=== PATIENT | female | born 1965 | race Hispanic/Latino ===

== ENCOUNTER 2018-12-14 15:37 | Outpatient (CLI) | payer OTHER ==
--- NOTE | 2018-12-14 17:54 | RAD ---
RIGHT KNEE: INDICATIONS: Knee pain. TECHNIQUE: Upright AP and lateral views obtained. FINDINGS: There are moderate degenerative changes present. Mild narrowing of the lateral joint space. Promine nt spurring from the lateral joint compartment. Spurring from the posterior patella with narrowing o f the patellofemoral joint. Spurring from the tibial spine. No joint effusion. IMPRESSION: Moderate degenerative changes, as described. POS: [facility]
--- NOTE | 2018-12-14 17:59 | RAD ---
LEFT KNEE TWO VIEWS: HISTORY: Knee pain. TECHNIQUE: Two views were taken upright. FINDINGS: Moderate to severe degenerative change. Subluxation at the knee joint with lateral subluxation of th e tibia. Loss of lateral joint space and spurring from the lateral joint compartment. Mild spurring and narrowing of the patellofemoral joint. No joint effusion seen. IMPRESSION: Moderate degenerative changes. POS: [facility]
== END 2018-12-14 15:38 | disposition home or self-care (01) ==
LOC: BICRAD 15:37
PROVIDERS: ATTEND Physician Assistant
DX: M25.561 Pain in right knee (principal); M17.0 Bilateral primary osteoarthritis of knee

== ENCOUNTER 2020-06-03 20:54 | Emergency (ER) | payer OTHER, SELFPAY ==
[2020-06-03 21:32] LABS: #Lymphocytes 1.3 thou/uL (1.20-3.40); #Monocytes 0.6 thou/uL (0.11-0.59); #Neutrophils 3.8 thou/uL (1.40-6.50); %Basophils 0.2 % (0.0-1.0); %Eosinophils 0.2 % (0.0-10.0); %Lymphocytes 22.2 % (21.0-51.0); %Monocytes 10.5 % (0.0-10.0); Hemoglobin 12.8 g/dL (12.0-16.0); Mean Corpuscular HGB CONC 32.9 g/dL (32.0-36.0); Mean Corpuscular Hemoglobin 29.2 pg (27.0-31.0); Mean Corpuscular Volume 88.9 fL (78.0-98.0); Mean Platelet Volume 7.3 fL (7.4-10.4); Platelet Count 180 thou/uL (130-400); RBC Distribution Width 13.1 % (11.5-14.5); Red Blood Cell (RBC) Count 4.38 mill/uL (4.20-5.40); White Blood Cell (WBC) Count 5.6 thou/uL (4.8-10.8)
[2020-06-03] MEDS ORDERED: Ketorolac Tromethamine 30 MG/ML VIAL ONE (21:47)
[2020-06-03 21:59] LABS: ALT (SGPT) 50 U/L (8-55); AST (SGOT) 41 U/L (5-34); Albumin 3.6 g/dL (3.5-5.0); Alkaline Phosphatase 49 U/L (40-110); Anion Gap 12 mmol/L (10-20); BUN (Urea Nitrogen) 10 mg/dL (9.8-20.1); Bilirubin, Total 0.3 mg/dL (0.2-1.2); Calc. Creatinine Clearance 0 mL/min (70-130); Calcium 7.4 mg/dL (7.8-10.44); Carbon Dioxide 21 mmol/L (22-29); Chloride 108 mmol/L (98-107); Globulin 2.7 g/dL (2.4-3.5); Glucose 126 mg/dL (70-105); Potassium 3.4 mmol/L (3.5-5.1); Protein, Total 6.3 g/dL (6.0-8.3); Sodium 138 mmol/L (136-145)
== END 2020-06-03 23:53 | disposition home or self-care (01) ==
LOC: ERS 20:54
DX: U07.1 COVID-19 (principal); D64.9 Anemia, unspecified
CPT/HCPCS: 71045; 80053; 84484; 85025; 93005; 96374; J1885

== ENCOUNTER 2021-09-24 10:02 | Outpatient (CLI) | payer BC | END 2021-09-24 10:03 | disposition home or self-care (01) | LOC: BICRAD 10:02 | PROVIDERS: ATTEND Family Medicine | DX: M54.2 Cervicalgia (principal); M47.812 Spondylosis without myelopathy or radiculopathy, cervical region | CPT/HCPCS: 72040 ==